=== PATIENT | male | born 1985 | race Hispanic/Latino ===

== ENCOUNTER 2024-10-09 23:20 | Emergency (ER) | payer SELFPAY ==
[~2024-10-09] VITALS: Ht 175.3 cm; Wt 108.9 kg
[~2024-10-09 23:20] MED LIST: LAMO200T10 PO; METF-444 PO; PIOG30TA70 PO; SILD20TA14 PO
--- NOTE | 2024-10-09 23:42 | ERN ---
General Chief Complaint: Mechanical Fall Stated Complaint: C/O PAIN TO RT HIP AFTER FALL IN SHOWER Time Seen by MD: 23:35 Source: patient History of Present Illness Initial Comments Patient is a 39-year-old male with diabetes who fell in the shower onto his right hip. He points to his lateral hip but also his posterior buttocks and then also down the posterior surface of his right thigh. He has had prior surgery on that hip with screws which he said he has been in the past while coming out of a coma. Distal sensation intact. Pain prevents the patient from bearing any weight on the right side. Timing/Duration: 1 hour Allergies: Coded Allergies: No Known Drug Allergies (Unverified Allergy, Unknown, 05/26/23) Home Meds Reported Medications Pioglitazone HCl (Pioglitazone HCl) 30 Mg Tablet, 30 MG PO DAILY, TAB 07/09/23 Metformin HCl (Metformin HCl) 500 Mg Tablet, 500 MG PO BID, TAB 07/09/23 Lamotrigine (Lamotrigine) 200 Mg Tablet, 1 TAB PO HS 05/26/23 Sildenafil Citrate (Sildenafil) 20 Mg Tablet, 5 TAB PO DAILY PRN for OTHER [SEE ORDER COMMENTS] 05/26/23 Past Medical History Past Medical History: Diabetes-Type II Past Surgical History: Other Surgical History Other: HX OF HIP SX; Family History Family History: Negative Social History Social History: Negative ROS Dictation Review of systems otherwise negative Physical Exam General Appearance: (+) moderate distress Orientation: (+) alert, (+) oriented x 3 Head/Face Trauma: No Eye: bilateral eye normal inspection, bilateral eye PERRL, bilateral eye EOMI Ear, Nose, Throat: (+) hearing grossly normal, (+) normal ENT inspection Neck: (+) normal inspection, (+) supple Respiratory: (+) chest non-tender, (+) lungs clear Heart: (+) regular Gastrointestinal: (+) soft, (+) non-tender Extremities Comment Patient does not had any obvious deformities to his right hip a right pelvis region. No swelling or ecchymosis either. He can move his thigh and knee and feet. There are no distal sensory deficits. MDM I will give the patient some Toradol for pain relief and get a noncontrast CT scan of his pelvis and right hip. Patient's CT scans are negative for fracture. Orthopedic hardware is intact. Patient's pain is manageable with the Toradol. He is ready to go home. I will give him a single dose of muscle relaxant. He can follow up with his primary care physician for further pain control. ED Course Orders Procedure Category Date Status Time Ct Pelvis W/O Contrast CT 10/09/24 Resulted 23:36 Cyclobenzaprine Hcl PHA 10/10/24 Complete (Cyclobenzaprine Hcl 00:00 Ketorolac PHA 10/10/24 Complete Tromethamine 30mg/Ml 00:00 Current Medications Medications (Trade) Dose Ordered Sig/Brissa Route PRN Reason Start Time Stop Time Status Last Admin Dose Admin Cyclobenzaprine HCl (Cyclobenzaprine HCl) 10 mg ONCE ONCE PO 10/10/24 00:00 10/10/24 00:01 DC 10/09/24 23:49 Ketorolac Tromethamine (toRADol) 30 mg ONCE ONCE IVP 10/10/24 00:00 10/10/24 00:01 DC 10/09/24 23:49 Vital Signs Date Time Temp Pulse Resp B/P (MAP) Pulse Ox O2 Delivery O2 Flow Rate FiO2 10/09/24 23:47 94 18 157/98 98 Room Air* 0 21 10/09/24 23:21 96.8 100 20 149/79 97 Room Air DX & DISP Disposition: Discharge Departure Impression: Primary Impression: Hip pain, right Condition: Stable Additional Instructions: The CT scans show no fractures on your right hip, pelvis, femur. The pain is best controlled with Motrin and Tylenol. If pain is persistent and not relieved please see your primary care physician or orthopedic surgeon. Referrals: GREGG DEL RIO MD (PCP) LEVI RAUSCH MD Oct 09, 2024 23:42
[2024-10-09] MEDS: ketOROlac 30MG VIAL (30MG/ML) IVP ONE (23:49)
[2024-10-09] MEDS: CYCLOBENZAPRINE HCL 10 MG TABLET PO ONE (23:49)
--- NOTE | 2024-10-10 00:45 | HMCIMG ---
CT PELVIS W/O CONTRAST HISTORY: Status post fall COMPARISON: None TECHNIQUE: Multiple sequential axial images of the pelvis were obtained from the iliac crests through symphysis pubis. Patient was not given contrast through intravenous route. Oral contrast was not given. FINDINGS: There are normal sized pelvic and inguinal lymph nodes. Fecal material seen throughout the colon. Diverticula are seen within the colon consistent with diverticulosis. No ascites is seen. Atherosclerotic changes are present. Deformities are noted of the pubic rami bilaterally without old trauma. Postop changes are seen of the bilateral sacroiliac joints with fixation screws. This is limited evaluation due to artifacts. No CT evidence of acute sinusitis is seen. Pelvic sidewalls are symmetric bilaterally. Bladder is well distended without wall thickening. IMPRESSION: 1. Postop changes of the sacroiliac joints bilaterally with artifacts limit evaluation. Healing fractures of the pubic rami bilaterally are seen.. No other acute findings. CT was performed with one or more following dose reduction techniques: automated exposure control, adjustment of the mA and kv according to patient's size, or use of a iterative reconstruction technique.
[2024-10-10 01:39] VITALS: BP 135/79; PULSE 70; RESP 16; TEMP 98.5; O2SAT 96
[2024-10-10] MEDS: CYCLOBENZAPRINE HCL 10 MG TABLET PO ONE (01:50)
== END 2024-10-10 02:22 | disposition home or self-care (01) ==
LOC: EDH 23:20
DX: M25.551 Pain in right hip (principal); E11.9 Type 2 diabetes mellitus without complications; Z79.84 Long term (current) use of oral hypoglycemic drugs; W18.2XXA Fall in (into) shower or empty bathtub, initial encounter; Y93.E1 Activity, personal bathing and showering; Y92.89 Other specified places as the place of occurrence of the external cause; Y99.8 Other external cause status
CPT/HCPCS: 99285; 72192; 96372; J1885; 99284